=== PATIENT | male | born 1970 | race Caucasian/White ===

== ENCOUNTER 2023-06-02 07:24 | Day surgery (SDC) | payer OTHER ==
[~2023-06-02] VITALS: Ht 175.3 cm; Wt 88.0 kg
[~2023-06-02 07:24] MED LIST: B-121000 MC3 PO; Prozac20 MG PO; Vitamin D2000 UNIT PO
[2023-06-02 10:13] VITALS: BP 124/84
== END 2023-06-02 10:07 | disposition home or self-care (01) ==
LOC: ORSCSDS 07:24
PROVIDERS: Internal Medicine Gastroenterology
PROC: 0DBH8ZX Excision of Cecum, Via Natural or Artificial Opening Endoscopic, Diagnostic (ICD-10-PCS; principal; 2023-06-02 08:45)
DX: R19.7 Diarrhea, unspecified (principal); D12.0 Benign neoplasm of cecum; E78.5 Hyperlipidemia, unspecified; F41.9 Anxiety disorder, unspecified; Z79.899 Other long term (current) drug therapy
CPT/HCPCS: 88305; J2704; J7120